=== PATIENT | female | born 1995 | race African-American/Black ===

== ENCOUNTER 2017-10-12 14:20 | Inpatient (IN) | payer MEDICAID, OTHER ==
[~2017-10-12] VITALS: Ht 162.6 cm; Wt 68.0 kg
[~2017-10-12 14:20] MED LIST: PREN-88 PO
[2017-10-12] MEDS ORDERED: ONDANSETRON HCL 4MG/2ML VIAL IV STA (15:07)
[2017-10-12] MEDS ORDERED: MORPHINE SULFATE 4 MG/ML CPJ (NOT FOR IM USE) IV STA (15:07)
[2017-10-12] MEDS ORDERED: SODIUM CHLORIDE 0.9% 1,000 ML IV ONE ×2 (15:07→18:42)
[2017-10-12] MEDS ORDERED: CEFTRIAXONE 1 G PREMIX 50 ML IV ONE (15:15)
[2017-10-12] MEDS ORDERED: ACETAMINOPHEN 325MG TABLET PO PRN (15:15)
[2017-10-12 15:37] LABS: CLARITY URINE CLOUDY (CLEAR); COLOR URINE YELLOW (YELLOW); KETONES URINE NEGATIVE (NEGATIVE); LEUKOCYTE ESTERASE URINE 3+ (NEGATIVE); NITRITE URINE POSITIVE (NEGATIVE); OCCULT BLOOD URINE 1+ (NEGATIVE); PROTEIN URINE 2+ (NEGATIVE); SPECIFIC GRAVITY URINE 1.013 (1.005-1.030)
[2017-10-12 15:49] LABS: *BARBITURATES SCREEN URINE NEGATIVE (NEGATIVE); *BENZODIAZEPINES SCREEN URINE NEGATIVE (NEGATIVE); *COCAINE SCREEN URINE NEGATIVE (NEGATIVE)
[2017-10-12 15:50] LABS: METHADONE URINE SCREEN NEGATIVE (NEGATIVE); OPIATES URINE SCREEN NEGATIVE (NEGATIVE); PHENCYCLIDINE URINE SCREEN NEGATIVE (NEGATIVE)
[2017-10-12 15:57] LABS: *AMPHETAMINES SCREEN URINE PRESUMTIVE POSITIVE (NEGATIVE); CANNABINOID URINE SCREEN PRESUMTIVE POSITIVE (NEGATIVE)
[2017-10-12 16:05] LABS: CHLORIDE 104 mEq/L (98-107); INR 1.2; PROTHROMBIN TIME 12.5 sec (9.4-11.6)
[2017-10-12 16:08] LABS: HCG SCREEN POSITIVE
[2017-10-12 16:09] LABS: ETHANOL BLOOD < 10 mg/dL; HEMATOCRIT. 33.3 % (36.0-48.0); HEMOGLOBIN. 11.2 g/dL (12.0-16.0); MEAN CORPUSCULAR HEMOGLOBIN 30.2 pg (28.0-32.0); PLATELET 141 x1000/uL (130-400); RED CELL DISTRIBUTION WIDTH 13.3 % (11.6-14.6)
[2017-10-12 16:57] LABS: PLATELET ESTIMATE NORMAL
[2017-10-12] MEDS ORDERED: MORPHINE SULFATE 4 MG/ML CPJ (NOT FOR IM USE) IV ONE (19:30)
[2017-10-12] MEDS ORDERED: BUTORPHANOL TARTRATE 2 MG/ML VIAL IM PRN (19:30)
[2017-10-12] MEDS ORDERED: ONDANSETRON HCL 4MG/2ML VIAL IV ONE (19:30)
[2017-10-12 22:51] VITALS: BP 115/63
[2017-10-12 23:34] VITALS: BP 115/63
[2017-10-13 00:28] VITALS: BP 95/58
[2017-10-13] MEDS ORDERED: SODIUM CHLORIDE 0.9% 100 ML IV ONE (03:45)
[2017-10-13 04:00] VITALS: BP 100/61
[2017-10-13] MEDS ORDERED: CEFAZOLIN 2,000 MG in DEXT 5% WATER 100 ML IV SCH (05:00)
[2017-10-13] MEDS: ACETAMINOPHEN 650MG/20.3ML UDC PO PRN ×3 (06:07→20:36)
[2017-10-13 08:00] VITALS: BP 95/40
[2017-10-13] MEDS ORDERED: ONDANSETRON HCL 4MG/2ML VIAL IV PRN (09:00)
[2017-10-13] MEDS: PRENATAL VIT/FE FUMARATE/FA TABLET PO SCH (10:49)
[2017-10-13] MEDS: FERROUS SULFATE 325MG TABLET PO SCH (10:50)
[2017-10-13] MEDS: SODIUM CHLORIDE 0.9% 1,000 ML IV SCH ×2 (10:54→18:31)
[2017-10-13 12:00] VITALS: BP 80/48
[2017-10-13 14:56] LABS: BASOPHILS % 0.2 % (0.0-2.0); EOSINOPHILS % 0.3 % (0.0-5.0); HEMOGLOBIN. 10.1 g/dL (12.0-16.0); MEAN CORPUSCULAR HEMOGLOBIN 30.4 pg (28.0-32.0); MEAN CORPUSCULAR VOLUME 90.4 fL (81.0-99.0); MEAN PLATELET VOLUME 9.4 fl (7.4-10.4); MONOCYTES % 9.9 % (2.0-8.0); NEUTROPHILS % 81.6 % (40.0-76.0); PLATELET 127 x1000/uL (130-400); RED BLOOD CELL COUNT 3.32 mill/uL (4.2-5.4); RED CELL DISTRIBUTION WIDTH 13.4 % (11.6-14.6)
[2017-10-13] MEDS: CEFTRIAXONE 2 G in DEXTROSE 5% WATER 50 ML IV SCH (15:58)
[2017-10-13 16:00] VITALS: BP 105/76
[2017-10-13] MEDS: HYDROMORPHONE HCL/PF 2MG/ML CPJ IV PRN (16:21)
[2017-10-13] MEDS: DOCUSATE SODIUM 100MG CAPSULE PO SCH (18:30)
[2017-10-13 20:00] VITALS: BP 112/65
[2017-10-14] VITALS: BP 93/55
[2017-10-14] MEDS: ACETAMINOPHEN 650MG/20.3ML UDC PO PRN (03:41)
[2017-10-14] MEDS: HYDROMORPHONE HCL/PF 2MG/ML CPJ IV PRN ×3 (03:41→20:22)
[2017-10-14 04:00] VITALS: BP 117/70
[2017-10-14 08:00] VITALS: BP 120/60
[2017-10-14 08:00] LABS: CHLORIDE 105 mEq/L (98-107)
[2017-10-14 09:26] LABS: BASOPHILS % 0.2 % (0.0-2.0); EOSINOPHILS % 0.2 % (0.0-5.0); HEMATOCRIT. 28.7 % (36.0-48.0); HEMOGLOBIN. 9.7 g/dL (12.0-16.0); LYMPHOCYTES % 8.2 % (20.0-50.0); MEAN CORPUSCULAR HEMOGLOBIN 30.4 pg (28.0-32.0); MEAN CORPUSCULAR VOLUME 89.7 fL (81.0-99.0); MONOCYTES % 9.5 % (2.0-8.0); NEUTROPHILS % 81.9 % (40.0-76.0); PLATELET 127 x1000/uL (130-400); RED CELL DISTRIBUTION WIDTH 13.7 % (11.6-14.6)
[2017-10-14] MEDS: FERROUS SULFATE 325MG TABLET PO SCH (09:54)
[2017-10-14] MEDS: DOCUSATE SODIUM 100MG CAPSULE PO SCH ×2 (09:54→18:29)
[2017-10-14] MEDS: CEFTRIAXONE 2 G in DEXTROSE 5% WATER 50 ML IV SCH (09:55)
[2017-10-14] MEDS: PRENATAL VIT/FE FUMARATE/FA TABLET PO SCH (09:55)
[2017-10-14] MEDS: SODIUM CHLORIDE 0.9% 1,000 ML IV SCH (09:59)
[2017-10-14 12:00] VITALS: BP 130/60
[2017-10-14 16:00] VITALS: BP 101/47
[2017-10-14 20:00] VITALS: BP 97/50
[2017-10-14] MEDS: AMPICILLIN 2,000 MG in SODIUM CHLORIDE 0.9% 100 ML IV SCH (20:11)
[2017-10-15] VITALS: BP 101/57
[2017-10-15] MEDS: SODIUM CHLORIDE 0.9% 1,000 ML IV SCH ×2 (01:00→07:45)
[2017-10-15] MEDS: AMPICILLIN 2,000 MG in SODIUM CHLORIDE 0.9% 100 ML IV SCH ×3 (01:34→13:35)
[2017-10-15] MEDS: HYDROMORPHONE HCL/PF 2MG/ML CPJ IV PRN ×3 (01:36→13:35)
[2017-10-15 04:00] VITALS: BP 113/57
[2017-10-15 07:15] LABS: HIV SCREEN 4G Non Reactive (Non Reactive)
[2017-10-15 08:00] VITALS: BP 101/54
[2017-10-15] MEDS: FERROUS SULFATE 325MG TABLET PO SCH (08:53)
[2017-10-15] MEDS: PRENATAL VIT/FE FUMARATE/FA TABLET PO SCH (08:53)
[2017-10-15] MEDS: DOCUSATE SODIUM 100MG CAPSULE PO SCH (08:53)
[2017-10-15] MEDS ORDERED: NITR100C MT (11:15)
[2017-10-15] MEDS ORDERED: CEPH-569 MT (11:15)
[2017-10-15 12:00] VITALS: BP 101/54
[2017-10-15 15:03] VITALS: BP 17/101
== END 2017-10-15 16:20 | disposition home or self-care (01) | DRG 566 ==
LOC: ER 14:20 → 6EST 19:46 → ENRESERV 21:24
PROVIDERS: ADMIT Internal Medicine; ATTEND Internal Medicine
DX: O98.811 Other maternal infectious and parasitic diseases complicating pregnancy, first trimester (principal); A41.9 Sepsis, unspecified organism; E43 Unspecified severe protein-calorie malnutrition; N13.30 Unspecified hydronephrosis; O23.01 Infections of kidney in pregnancy, first trimester; N13.39 Other hydronephrosis; O99.321 Drug use complicating pregnancy, first trimester; Z3A.08 8 weeks gestation of pregnancy; O99.011 Anemia complicating pregnancy, first trimester; D64.9 Anemia, unspecified; N83.201 Unspecified ovarian cyst, right side; F15.10 Other stimulant abuse, uncomplicated; O99.89 Other specified diseases and conditions complicating pregnancy, childbirth and the puerperium; O25.10 Malnutrition in pregnancy, unspecified trimester; O34.81 Maternal care for other abnormalities of pelvic organs, first trimester; F12.10 Cannabis abuse, uncomplicated; O99.331 Smoking (tobacco) complicating pregnancy, first trimester; F17.200 Nicotine dependence, unspecified, uncomplicated; Z98.891 History of uterine scar from previous surgery; Z68.25 Body mass index [BMI] 25.0-25.9, adult
CPT/HCPCS: 36415; 76770; 76801; 80048; 80053; 80305; 81003; 83605; 83690; 83880; 84484; 84702; 84703; 85025; 85610; 86850; 86900; 87040; 87077; 87086; 87186; 96365; 96366; 96375; 96376; 99285; C1893; G0482; J0290; J0595; J0690; J0696; J1170; J2270; J2405; J7030; J7050; J7060

== ENCOUNTER 2018-05-11 09:01 | Inpatient (IN) | payer OTHER ==
[~2018-05-11] VITALS: Ht 162.6 cm; Wt 99.8 kg
[~2018-05-11 09:01] MED LIST changes: +CEPH-569 MT; +NITR100C MT
[2018-05-11] MEDS ORDERED: DEXT 5%/LR + PITOCIN 20UNITS/L 1,000 ML IV SCH (09:31)
[2018-05-11] MEDS ORDERED: BUTORPHANOL TARTRATE 2 MG/ML VIAL IV PRN (09:45)
[2018-05-11] MEDS ORDERED: LIDOCAINE HCL 1% 20ML VIAL (Pyxis) INJ INFIL NR (09:45)
[2018-05-11] MEDS ORDERED: NALOXONE HCL 0.4 MG/ML 1ML VIAL IM PRN (09:45)
[2018-05-11] MEDS ORDERED: METHYLERGONOVINE MALEATE 0.2 MG/ML IM PRN (09:45)
[2018-05-11] MEDS: LACTATED RINGERS 1,000 ML IV SCH ×2 (09:53→12:56)
[2018-05-11] MEDS: TERBUTALINE SULFATE 1MG/ML VIAL SUBCUT PRN ×2 (10:12→10:58)
[2018-05-11 10:48] LABS: BASOPHILS % 0.2 % (0.0-2.0); EOSINOPHILS % 0.9 % (0.0-5.0); HEMATOCRIT. 28.4 % (36.0-48.0); LYMPHOCYTES % 23.4 % (20.0-50.0); MEAN CORPUSCULAR HEMOGLOBIN 25.1 pg (28.0-32.0); MEAN CORPUSCULAR VOLUME 79.2 fL (81.0-99.0); MEAN PLATELET VOLUME 9.6 fl (7.4-10.4); MONOCYTES % 7.7 % (2.0-8.0); NEUTROPHILS % 67.8 % (40.0-76.0); PLATELET 145 x1000/uL (130-400); RED BLOOD CELL COUNT 3.59 mill/uL (4.2-5.4); RED CELL DISTRIBUTION WIDTH 16.8 % (11.6-14.6)
[2018-05-11] MEDS ORDERED: PENICILLIN G POTASSIUM 5 MMU in DEXT 5% WATER 100 ML IV NR (11:00)
[2018-05-11 11:09] LABS: INR 0.9; PROTHROMBIN TIME 9.3 sec (9.1-11.1)
[2018-05-11 11:30] LABS: CLARITY URINE CLEAR (CLEAR); COLOR URINE DARK YELLOW (YELLOW); KETONES URINE 1+ (NEGATIVE); LEUKOCYTE ESTERASE URINE 1+ (NEGATIVE); NITRITE URINE NEGATIVE (NEGATIVE); OCCULT BLOOD URINE TRACE (NEGATIVE); PROTEIN URINE TRACE (NEGATIVE); SPECIFIC GRAVITY URINE 1.029 (1.005-1.030)
[2018-05-11 11:51] LABS: HEPATITIS B SURFACE ANTIGEN NEGATIVE
[2018-05-11 12:12] LABS: *BARBITURATES SCREEN URINE NEGATIVE (NEGATIVE); *BENZODIAZEPINES SCREEN URINE NEGATIVE (NEGATIVE); *COCAINE SCREEN URINE NEGATIVE (NEGATIVE)
[2018-05-11 12:13] LABS: CANNABINOID URINE SCREEN NEGATIVE (NEGATIVE); METHADONE URINE SCREEN NEGATIVE (NEGATIVE); OPIATES URINE SCREEN NEGATIVE (NEGATIVE); PHENCYCLIDINE URINE SCREEN NEGATIVE (NEGATIVE)
[2018-05-11 12:29] LABS: CHLORIDE 109 mEq/L (98-107)
[2018-05-11 12:36] LABS: *AMPHETAMINES SCREEN URINE PRESUMTIVE POSITIVE (NEGATIVE)
[2018-05-11] MEDS ORDERED: BUPIVACAINE HCL/DEXTROSE/PF 0.75% 2ML AMP INJ ONE (14:45)
[2018-05-11] MEDS ORDERED: MORPHINE SULFATE/PF 1MG/ML 10ML AMP ONE (14:46)
[2018-05-11] MEDS ORDERED: PENICILLIN G POTASSIUM 2.5 MMU in DEXTROSE 5% WATER 50 ML IV SCH (15:00)
[2018-05-11] MEDS ORDERED: SODIUM CHLORIDE 0.9% 10ML VIAL ONE (16:27)
[2018-05-11] MEDS ORDERED: CEFAZOLIN SODIUM 1000MG/VIAL ONE (16:27)
[2018-05-11] MEDS ORDERED: OXYTOCIN 10 UNITS/ML 1ML ONE ×2 (16:27→17:16)
[2018-05-11] MEDS ORDERED: HYDROMORPHONE HCL/PF 2MG/ML CPJ IV PRN (16:45)
[2018-05-11] MEDS ORDERED: NALOXONE HCL 0.4 MG/ML 1ML VIAL IV PRN ×2 (16:45)
[2018-05-11] MEDS ORDERED: LABETALOL 5MG/ML SYR 20 MG/4 ML SYRINGE IV PRN (16:45)
[2018-05-11] MEDS ORDERED: ONDANSETRON HCL 4MG/2ML INJ IV PRN ×2 (16:45→17:45)
[2018-05-11] MEDS ORDERED: MEPERIDINE HCL/PF 25MG/ML CPJ IV PRN (16:45)
[2018-05-11] MEDS ORDERED: RHO(D) IMMUNE GLOBULIN 300 MCG/SYR IM PRN (17:45)
[2018-05-11 20:20] VITALS: BP 105/68
[2018-05-11] MEDS: DIPHENHYDRAMINE 50MG/ML VIAL IM PRN (20:43)
[2018-05-11 21:00] VITALS: BP 100/63
[2018-05-11 21:30] VITALS: BP 101/53
[2018-05-12] VITALS: BP 108/69
[2018-05-12 04:00] VITALS: BP 106/51
[2018-05-12] MEDS: DIPHENHYDRAMINE 50MG/ML VIAL IM PRN (04:45)
[2018-05-12 08:00] VITALS: BP 131/72
[2018-05-12 08:10] LABS: BASOPHILS % 0.3 % (0.0-2.0); EOSINOPHILS % 0.6 % (0.0-5.0); HEMATOCRIT. 21.4 % (36.0-48.0); LYMPHOCYTES % 14.7 % (20.0-50.0); MEAN CORPUSCULAR HEMOGLOBIN 25.2 pg (28.0-32.0); MEAN CORPUSCULAR VOLUME 79.2 fL (81.0-99.0); MEAN PLATELET VOLUME 9.8 fl (7.4-10.4); MONOCYTES % 8.7 % (2.0-8.0); NEUTROPHILS % 75.7 % (40.0-76.0); PLATELET 123 x1000/uL (130-400); RED BLOOD CELL COUNT 2.71 mill/uL (4.2-5.4); RED CELL DISTRIBUTION WIDTH 16.7 % (11.6-14.6)
[2018-05-12 08:32] LABS: HEMOGLOBIN. 6.8 g/dL (12.0-16.0)
[2018-05-12] MEDS: PRENATAL VIT/FE FUMARATE/FA TABLET PO SCH ×2 (08:41→10:23)
[2018-05-12] MEDS: ACETAMINOPHEN WITH CODEINE 300/30MG TABLET PO PRN (08:42)
[2018-05-12 15:53] VITALS: BP 119/64
[2018-05-12] MEDS: IBUPROFEN 800MG TABLET PO PRN (17:26)
[2018-05-12 20:16] VITALS: BP 118/74
[2018-05-12] MEDS: DOCUSATE SODIUM 100MG CAPSULE PO SCH (21:00)
[2018-05-13 00:12] VITALS: BP 108/69
[2018-05-13] MEDS: ACETAMINOPHEN WITH CODEINE 300/30MG TABLET PO PRN (04:07)
[2018-05-13 08:00] VITALS: BP 113/62
[2018-05-13] MEDS: IBUPROFEN 800MG TABLET PO PRN ×2 (09:29→18:11)
[2018-05-13 16:00] VITALS: BP 118/62
[2018-05-13 19:30] VITALS: BP 132/86
[2018-05-13 19:41] LABS: CLARITY URINE CLOUDY (CLEAR); COLOR URINE YELLOW (YELLOW); KETONES URINE NEGATIVE (NEGATIVE); LEUKOCYTE ESTERASE URINE 3+ (NEGATIVE); NITRITE URINE NEGATIVE (NEGATIVE); OCCULT BLOOD URINE 2+ (NEGATIVE); PH URINE 7.5 (4.5-8.0); PROTEIN URINE NEGATIVE (NEGATIVE)
[2018-05-13 20:45] VITALS: BP 138/84
[2018-05-13] MEDS: HYDROCODONE/ACETAMINOPHEN 5/325MG TABLET PO PRN (20:51)
[2018-05-13] MEDS: DOCUSATE SODIUM 100MG CAPSULE PO SCH (21:00)
[2018-05-14 00:15] VITALS: BP 111/45
[2018-05-14 04:00] VITALS: BP 112/62
[2018-05-14] MEDS: IBUPROFEN 800MG TABLET PO PRN (07:14)
[2018-05-14 08:10] VITALS: BP 124/68
[2018-05-14] MEDS: PRENATAL VIT/FE FUMARATE/FA TABLET PO SCH (09:00)
[2018-05-14] MEDS: HYDROCODONE/ACETAMINOPHEN 5/325MG TABLET PO PRN (10:33)
[2018-05-15 15:06] LABS: AMPHETAMINE CONF URINE Positive (.)
== END 2018-05-14 12:00 | disposition home or self-care (01) | DRG 540 ==
LOC: OBSVTOIN 09:01 → L&D 09:01 → 8 EST LDRP 09:25 → 8EST 20:20
PROVIDERS: ADMIT Obstetrics & Gynecology; ATTEND Obstetrics & Gynecology
PROC: 10D00Z1 Extraction of Products of Conception, Low, Open Approach (ICD-10-PCS; principal; 2018-05-11)
DX: O48.0 Post-term pregnancy (principal); D62 Acute posthemorrhagic anemia; O69.81X0 Labor and delivery complicated by cord around neck, without compression, not applicable or unspecified; O34.211 Maternal care for low transverse scar from previous cesarean delivery; O99.89 Other specified diseases and conditions complicating pregnancy, childbirth and the puerperium; N73.6 Female pelvic peritoneal adhesions (postinfective); Z37.0 Single live birth; O90.81 Anemia of the puerperium; Z3A.41 41 weeks gestation of pregnancy
CPT/HCPCS: 36415; 76805; 76818; 80305; 80307; 80359; 86592; 86703; 86762; 86850; 86900; 86920; 87340; 88307; 99281; J0690; J1170; J1200; J2274; J2540; J2590; J3105; J3490; J7060; A4315

== ENCOUNTER 2024-10-10 08:55 | Inpatient (IN) | payer SELFPAY ==
[~2024-10-10] VITALS: Ht 162.6 cm; Wt 72.6 kg
[2024-10-10] MEDS: SODIUM CHLORIDE 0.9% (SEPSIS BOLUS) IV ONE (09:38)
[2024-10-10 09:42] LABS: CHLORIDE 100 mEq/L (98-107); POTASSIUM 3.4 mEq/L (3.5-5.1); SODIUM 135 mEq/L (136-145)
[2024-10-10 09:43] LABS: CALCIUM 8.9 mg/dL (8.7-10.4); CARBON DIOXIDE 27 mEq/L (21-32)
[2024-10-10 09:46] LABS: CLARITY URINE CLEAR (CLEAR); COLOR URINE YELLOW (YELLOW); GLUCOSE URINE NEGATIVE (NEGATIVE); KETONES URINE 1+ (NEGATIVE); LEUKOCYTE ESTERASE URINE TRACE (NEGATIVE); NITRITE URINE NEGATIVE (NEGATIVE); OCCULT BLOOD URINE 1+ (NEGATIVE); PH URINE 6.5 (4.5-8.0); PROTEIN URINE NEGATIVE (NEGATIVE)
[2024-10-10] MEDS: KETOROLAC 30MG/ML VIAL IV STA (09:47)
[2024-10-10 09:48] LABS: CREATININE 0.9 mg/dL (0.6-1.0); GLUCOSE 110 mg/dL (70-105); UREA NITROGEN BLOOD 7 mg/dL (9-23)
[2024-10-10 10:06] LABS: *AMPHETAMINES SCREEN URINE PRESUMPTIVE POSITIVE (NEGATIVE); *BARBITURATES SCREEN URINE NEGATIVE (NEGATIVE); *BENZODIAZEPINES SCREEN URINE NEGATIVE (NEGATIVE)
[2024-10-10 10:07] LABS: *COCAINE SCREEN URINE NEGATIVE (NEGATIVE); CANNABINOID URINE SCREEN PRESUMPTIVE POSITIVE (NEGATIVE); ECSTASY MDMA SCREEN URINE CONF.TEST INDICATED (NEGATIVE); METHADONE URINE SCREEN NEGATIVE (NEGATIVE); OPIATES URINE SCREEN NEGATIVE (NEGATIVE); PHENCYCLIDINE URINE SCREEN NEGATIVE (NEGATIVE)
[2024-10-10 10:11] LABS: SQUAMOUS EPITHELIAL CELL URINE 3+ /lpf (RARE/1+)
[2024-10-10 10:12] LABS: BACTERIA URINE 4+
[2024-10-10 10:46] LABS: BASOPHILS % 0.2 % (0.0-2.0); DIFFERENTIAL COMMENT 0; EOSINOPHILS % 0.8 % (0.0-5.0); HEMOGLOBIN. 9.4 g/dL (12.0-16.0); LYMPHOCYTES % 17.9 % (20.0-50.0); MEAN CORPUSCULAR HEMOGLOBIN 22.7 pg (28.0-32.0); MEAN CORPUSCULAR HGB CONC 31.5 g/dL (31.0-37.0); MEAN PLATELET VOLUME 8.6 fl (7.4-10.4); MONOCYTES % 9.2 % (2.0-8.0); NEUTROPHILS % 71.9 % (40.0-76.0); PLATELET 273 x1000/uL (130-400); RED BLOOD CELL COUNT 4.16 mill/uL (4.2-5.4); RED CELL DISTRIBUTION WIDTH 18.3 % (11.6-14.6); WHITE BLOOD COUNT 8.4 x1000/uL (4.5-11.0)
[2024-10-10] MEDS ORDERED: CLINDAMYCIN 600 MG in DEXTROSE 5% WATER 50 ML IV STA (11:00)
[2024-10-10] MEDS: ONDANSETRON HCL 4MG/2ML INJ ONE (11:05)
[2024-10-10] MEDS: PIPERACILLIN/TAZO 3.375G/50ML 50 ML IV STA (11:12)
[2024-10-10] MEDS: CLINDAMYCIN 600MG PREMIX 50 ML IV SCH (11:55)
[2024-10-10 15:28] VITALS: BP 124/76; PULSE 85; RESP 18; TEMP 36.6
[2024-10-10] MEDS ORDERED: CLONIDINE 0.1MG TABLET PO PRN (15:30)
[2024-10-10] MEDS ORDERED: ACETAMINOPHEN 325MG TABLET PO PRN (15:30)
[2024-10-10] MEDS ORDERED: GUAIFENESIN 200MG/10ML SUGAR FREE UDC PO PRN (15:30)
[2024-10-10] MEDS ORDERED: DOCUSATE SODIUM 100MG CAPSULE PO PRN (15:30)
[2024-10-10] MEDS ORDERED: ONDANSETRON HCL 4MG/2ML INJ IV PRN (15:30)
[2024-10-10] MEDS ORDERED: IPRATROPIUM/ALBUTEROL 0.5-3(2.5)MG/3ML NEB HHN PRN (15:30)
[2024-10-10] MEDS ORDERED: MAGNESIUM/ALUMINUM HYDROXIDE/SIMETHICONE 30ML UDC PO PRN (15:30)
[2024-10-10] MEDS ORDERED: IOHEXOL-300 100 ML BOTTLE ONE (15:31)
[2024-10-10] MEDS: SODIUM CHLORIDE 0.9% 1,000 ML IV SCH (16:15)
[2024-10-10 16:49] VITALS: BP 120/79; PULSE 82; RESP 18; TEMP 37.1; O2SAT 98
[2024-10-10] MEDS: AMPICILLIN SOD/SULBACTAM NA 3 G in SODIUM CHLORIDE 0.9% 100 ML IV SCH (17:12)
[2024-10-10] MEDS: KCL 10MEQ/50ML PREMIX 50 ML IV SCH (18:01)
[2024-10-10] MEDS: KETOROLAC 15MG/ML VIAL IV PRN (19:37)
[2024-10-10 20:00] VITALS: BP 107/69; PULSE 100; RESP 20; TEMP 36.2; O2SAT 98
[2024-10-11] VITALS: BP 103/60; PULSE 111; RESP 20; TEMP 36; O2SAT 99
[2024-10-11 04:00] VITALS: BP 115/70; PULSE 105; RESP 20; TEMP 36.3; O2SAT 99
[2024-10-11 08:00] VITALS: BP 112/72; PULSE 95; RESP 19; TEMP 36.4; O2SAT 97
[2024-10-11] MEDS: PANTOPRAZOLE SODIUM 40 MG/VIAL IV SCH (08:40)
[2024-10-11 09:41] LABS: BASOPHILS % 0.5 % (0.0-2.0); DIFFERENTIAL COMMENT 0; HEMATOCRIT. 28.6 % (36.0-48.0); LYMPHOCYTES % 21.4 % (20.0-50.0); MEAN CORPUSCULAR HEMOGLOBIN 22.6 pg (28.0-32.0); MEAN CORPUSCULAR HGB CONC 31.4 g/dL (31.0-37.0); MEAN CORPUSCULAR VOLUME 72.1 fL (81.0-99.0); MEAN PLATELET VOLUME 8.3 fl (7.4-10.4); MONOCYTES % 10.2 % (2.0-8.0); NEUTROPHILS % 65.9 % (40.0-76.0); PLATELET 227 x1000/uL (130-400); RED BLOOD CELL COUNT 3.97 mill/uL (4.2-5.4); RED CELL DISTRIBUTION WIDTH 18.3 % (11.6-14.6)
[2024-10-11 09:58] LABS: CARBON DIOXIDE 23 mEq/L (21-32); CHLORIDE 106 mEq/L (98-107); POTASSIUM 3.7 mEq/L (3.5-5.1); SODIUM 136 mEq/L (136-145)
[2024-10-11 09:59] LABS: CALCIUM 8.5 mg/dL (8.7-10.4)
[2024-10-11 10:03] LABS: CREATININE 0.7 mg/dL (0.6-1.0)
[2024-10-11 10:04] LABS: GLUCOSE 73 mg/dL (70-105); TRIGLYCERIDE 69 mg/dL (0-150); UREA NITROGEN BLOOD 7 mg/dL (9-23)
[2024-10-11 10:05] LABS: ALANINE AMINOTRANSFERASE < 7 IU/L (10-49); ALBUMIN 3.6 g/dL (3.2-4.8); ASPARTATE AMINOTRANSFERASE 17 IU/L (<34); CREATINE KINASE 84 IU/L (34-145); LDL CHOLESTEROL 71 mg/dL (5-100)
[2024-10-11 10:06] LABS: BILIRUBIN DIRECT 0.2 mg/dL (<=3.0); BILIRUBIN TOTAL 0.6 mg/dL (0.1-1.0); CHOLESTEROL 103 mg/dL (<200); HDL CHOLESTEROL 26 mg/dL (>65); PROTEIN TOTAL 6.6 g/dL (6.0-8.3)
[2024-10-11 10:08] LABS: THYROID STIMULATING HORMONE 0.33 uIU/mL (0.55-4.78)
[2024-10-11 12:00] VITALS: BP 114/68; PULSE 94; RESP 20; TEMP 36.3; O2SAT 96
[2024-10-11] MEDS: MAGNESIUM 1 G PREMIX 100 ML IV SCH (15:29)
[2024-10-11 16:00] VITALS: BP 112/79; PULSE 91; RESP 18; TEMP 36.7; O2SAT 98
[2024-10-11 20:00] VITALS: BP 98/66; PULSE 76; RESP 18; TEMP 36.4; O2SAT 98
[2024-10-12] MEDS: ACETAMINOPHEN 325MG TABLET PO PRN (02:00)
[2024-10-12 04:00] VITALS: BP 111/62; PULSE 85; RESP 20; TEMP 36.5; O2SAT 97
[2024-10-12 08:00] VITALS: BP 107/66; PULSE 83; RESP 18; TEMP 36.6; O2SAT 97
[2024-10-12] MEDS ORDERED: AMOX1TAB16 MT (09:59)
[2024-10-12 10:37] VITALS: BP 107/66; PULSE 83; TEMP 97.9; O2SAT 97
[2024-10-12 12:15] LABS: CHLORIDE 106 mEq/L (98-107); POTASSIUM 3.8 mEq/L (3.5-5.1); SODIUM 139 mEq/L (136-145)
[2024-10-12 12:16] LABS: CALCIUM 8.9 mg/dL (8.7-10.4); CARBON DIOXIDE 26 mEq/L (21-32)
[2024-10-12 12:21] LABS: CREATININE 0.7 mg/dL (0.6-1.0); GLUCOSE 148 mg/dL (70-105); UREA NITROGEN BLOOD 8 mg/dL (9-23)
== END 2024-10-12 14:24 | disposition home or self-care (01) | DRG 383 ==
LOC: ER 09:15 → 8EST 12:59 → EDBEDREQTM 13:05 → EDBEDREQ 13:05
PROVIDERS: ADMIT Hospitalist; ATTEND Hospitalist
DX: L03.213 Periorbital cellulitis (principal); E83.42 Hypomagnesemia; L03.211 Cellulitis of face; E87.6 Hypokalemia; R82.71 Bacteriuria; K04.7 Periapical abscess without sinus; F15.129 Other stimulant abuse with intoxication, unspecified; M27.2 Inflammatory conditions of jaws; Z79.899 Other long term (current) drug therapy; Z98.891 History of uterine scar from previous surgery
CPT/HCPCS: 36415; 70487; 80048; 80061; 80076; 80305; 81003; 82550; 83605; 83735; 84145; 84439; 84443; 85025; 96361; 96365; 96367; 96375; 99285; J0295; J1885; J2405; J2470; J2543; J3475; J3480; J3490; J7030; J7050; J7060; Q9967